=== PATIENT | female | born 1980 | race Caucasian/White ===

== ENCOUNTER 2016-07-24 21:06 | Emergency (ER) | payer OTHER | END 2016-07-25 00:25 | disposition home or self-care (01) | LOC: ER1 21:06 | DX: G89.29 Other chronic pain (principal); R10.11 Right upper quadrant pain; M25.562 Pain in left knee; F17.210 Nicotine dependence, cigarettes, uncomplicated | CPT/HCPCS: 96372; 99284 ==

== ENCOUNTER 2021-03-11 17:45 | Emergency (ER) | payer OTHER ==
[2021-03-11 18:57] LABS: HEMOGLOBIN 13.7 gm/dl (12.3-15.3); RED BLOOD COUNT 4.36 M/UL (4.00-5.10); WHITE BLOOD COUNT 10.2 K/UL (4.5-11.0)
[2021-03-11 19:21] LABS: BUN/CREATININE RATIO 30 (0-10)
[2021-03-11] MEDS ORDERED: ONDANSETRON ODT4 MG SL (21:07)
[2021-03-11] MEDS ORDERED: PROTONIX40 MG PO (21:07)
[2021-03-11] MEDS ORDERED: CEPHALEXIN500 M1 PO (21:07)
== END 2021-03-11 21:25 | disposition home or self-care (01) ==
LOC: ER1 17:45
PROVIDERS: Physician Assistant
DX: N39.0 Urinary tract infection, site not specified (principal); J06.9 Acute upper respiratory infection, unspecified; J40 Bronchitis, not specified as acute or chronic; F17.200 Nicotine dependence, unspecified, uncomplicated; Z20.822 Contact with and (suspected) exposure to COVID-19; K21.9 Gastro-esophageal reflux disease without esophagitis; Z90.49 Acquired absence of other specified parts of digestive tract; Z88.8 Allergy status to other drugs, medicaments and biological substances; Z88.2 Allergy status to sulfonamides; Z88.5 Allergy status to narcotic agent
CPT/HCPCS: 71045; 80053; 81001; 83690; 84703; 85025; 87081; 87086; 87880; 96374; 96375; 99284; C9113; J2405; U0002

== ENCOUNTER 2021-08-18 01:55 | Inpatient (IN) | payer OTHER ==
[~2021-08-18] VITALS: Ht 167.6 cm; Wt 97.5 kg
[~2021-08-18 01:55] MED LIST: CEPHALEXIN500 M1 PO; ONDANSETRON ODT4 MG SL; PROTONIX40 MG PO
[2021-08-18 02:38] LABS: HEMOGLOBIN 11.7 gm/dl (12.3-15.3); RED BLOOD COUNT 3.97 M/UL (4.00-5.10); WHITE BLOOD COUNT 23.2 K/UL (4.5-11.0)
[2021-08-18 02:56] LABS: BUN/CREATININE RATIO 23 (0-10)
[2021-08-18] MEDS ORDERED: FAMOTIDINE20 MG PO (09:13)
[2021-08-18] MEDS ORDERED: EXCEDRIN MIGRA1 EACH PO (09:14)
[2021-08-18] MEDS ORDERED: BENADRYL 25MG C25 MG PO (09:14)
[2021-08-19 06:06] LABS: RED BLOOD COUNT 3.38 M/UL (4.00-5.10); WHITE BLOOD COUNT 13.4 K/UL (4.5-11.0)
[2021-08-19 06:27] LABS: BUN/CREATININE RATIO 12 (0-10)
[2021-08-19] MEDS ORDERED: LEVOFLOXACIN500 MG PO (09:07)
== END 2021-08-19 10:48 | disposition home or self-care (01) | DRG 872 ==
LOC: ER1 01:55 → MED SURG 4 06:08 → CDU 06:08 → MED SURG 4 07:27
PROVIDERS: Emergency Medicine; Internal Medicine; ADMIT Internal Medicine
DX: A41.9 Sepsis, unspecified organism (principal); N10 Acute pyelonephritis; F41.9 Anxiety disorder, unspecified; G43.909 Migraine, unspecified, not intractable, without status migrainosus; F17.200 Nicotine dependence, unspecified, uncomplicated; Z20.822 Contact with and (suspected) exposure to COVID-19; Z82.49 Family history of ischemic heart disease and other diseases of the circulatory system; Z83.3 Family history of diabetes mellitus; Z88.2 Allergy status to sulfonamides; Z88.5 Allergy status to narcotic agent; Z98.51 Tubal ligation status; Z98.890 Other specified postprocedural states; Z86.73 Personal history of transient ischemic attack (TIA), and cerebral infarction without residual deficits
CPT/HCPCS: 36415; 71045; 80053; 81001; 83036; 83605; 83690; 83735; 84100; 84703; 85025; 86140; 87040; 87086; 96374; 96375; 99285; J1170; J1650; J1885; J2270; J2405; J2543; Q9967; U0002

== ENCOUNTER 2021-09-08 17:03 | Emergency (ER) | payer OTHER ==
[~2021-09-08 17:03] MED LIST changes: +BENADRYL 25MG C25 MG PO; +EXCEDRIN MIGRA1 EACH PO; +FAMOTIDINE20 MG PO; +LEVOFLOXACIN500 MG PO
== END 2021-09-08 18:10 | disposition left against medical advice (07) ==
LOC: ER1 17:03
DX: Z53.21 Procedure and treatment not carried out due to patient leaving prior to being seen by health care provider (principal)